=== PATIENT | female | born 1965 | race Caucasian/White ===

== ENCOUNTER 2020-11-20 12:54 | Emergency (ER) | payer MEDICARE, OTHER, SELFPAY ==
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
[2020-11-20 13:16] VITALS: BP 110/66; PULSE 82; RESP 18; TEMP 36.8; O2SAT 100
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
== END 2020-11-20 14:05 | disposition home or self-care (01) ==
PROVIDERS: Emergency Provider Nurse Practitioner Family
DX: S63.512A Sprain of carpal joint of left wrist, initial encounter (principal); S66.912A Strain of unspecified muscle, fascia and tendon at wrist and hand level, left hand, initial encounter; V18.4XXA Pedal cycle driver injured in noncollision transport accident in traffic accident, initial encounter; S62.102A Fracture of unspecified carpal bone, left wrist, initial encounter for closed fracture; I73.00 Raynaud's syndrome without gangrene; M34.9 Systemic sclerosis, unspecified; K21.9 Gastro-esophageal reflux disease without esophagitis; E03.9 Hypothyroidism, unspecified; R73.03 Prediabetes
CPT/HCPCS: 29125; 73110; 99213; G0463